=== PATIENT | male | born 1965 | race Caucasian/White ===

== ENCOUNTER 2022-03-12 13:40 | Emergency (ER) | payer SELFPAY ==
[~2022-03-12] VITALS: Ht 177.8 cm; Wt 113.6 kg
[2022-03-12] MEDS ORDERED: indomethacin 25mg capsule PO STA (16:54)
[2022-03-12] MEDS ORDERED: predniSONE 20 mg tablet PO ONE (16:55)
[2022-03-12] MEDS ORDERED: PRED10TA PO (17:11)
[2022-03-12] MEDS ORDERED: INDO50CA96 PO (17:11)
[2022-03-12] MEDS ORDERED: cephalexin 250mg capsule PO ONE (17:40)
[2022-03-12] MEDS ORDERED: CEPH-585 PO (17:41)
[2022-03-12 18:06] VITALS: BP 117/80
== END 2022-03-12 18:07 | disposition home or self-care (01) ==
LOC: ER 13:40
DX: M10.9 Gout, unspecified (principal); F17.200 Nicotine dependence, unspecified, uncomplicated; F12.10 Cannabis abuse, uncomplicated; I50.9 Heart failure, unspecified; Z79.899 Other long term (current) drug therapy
CPT/HCPCS: 99284; J7512; A4565